=== PATIENT | male | born 1990 | race Caucasian/White ===

== ENCOUNTER 2021-07-24 09:44 | Emergency (ER) | payer OTHER ==
[~2021-07-24] VITALS: Ht 182.9 cm; Wt 74.8 kg
== END 2021-07-24 13:21 | disposition home or self-care (01) ==
LOC: ER 09:44
DX: S92.001D Unspecified fracture of right calcaneus, subsequent encounter for fracture with routine healing (principal); S92.212D Displaced fracture of cuboid bone of left foot, subsequent encounter for fracture with routine healing; S92.102D Unspecified fracture of left talus, subsequent encounter for fracture with routine healing; S92.222D Displaced fracture of lateral cuneiform of left foot, subsequent encounter for fracture with routine healing; S92.242D Displaced fracture of medial cuneiform of left foot, subsequent encounter for fracture with routine healing; S92.255D Nondisplaced fracture of navicular [scaphoid] of left foot, subsequent encounter for fracture with routine healing; S92.311D Displaced fracture of first metatarsal bone, right foot, subsequent encounter for fracture with routine healing; V89.2XXA Person injured in unspecified motor-vehicle accident, traffic, initial encounter
CPT/HCPCS: 73610; 73700; 99283-25